=== PATIENT | male | born 1975 | race Caucasian/White ===

== ENCOUNTER 2018-05-15 11:11 | Emergency (ER) | payer MEDICARE, MEDICAID ==
[2017-07-17 10:02] VITALS: BMI 26.2
[~2018-05-15 11:11] MED LIST: AMOX-362 PO; AMOX250S73 PO; BACL-1 FT; BACL-1 PO; CLIN300C99 FT; IPRA0.2S8 IH; LEVO-85 FT; LORA5SOL56 PO; MIR; OMEP-125 PEG; ONDA4TAB PO; OSEL6SUS4 FT; OXYB5TAB80 FT; OXYB5TAB86 PO; OXYXL5 PO; POLY17PO25 FT; POLY17PO25 PO; RAN150 PO; RANI-318 FT; RANI15SY19 PO; TER20I SQ; omeprazole FT
--- NOTE | 2018-05-15 11:20 | ER Report ---
History and Physical Time Seen By MD: 11:19 HPI/ROS CHIEF COMPLAINT: Nausea and vomiting HISTORY OF PRESENT ILLNESS: This is a 43-year-old male, who has CP and is wheelchair-bound, has had nausea and vomiting. According to the patient's mother and sister he's had nausea and vomiting for the last 4 days was evaluated by his primary care provider yesterday and today subsequently they were concerned about a small bowel obstruction and sent to the emergency room. Patient arrives in no apparent distress. No fevers or chills according to the family. Little to no urine output in the last day. Patient does have a PEG tube. REVIEW OF SYSTEMS: Constitutional: No fever, no chills. Eyes: No discharge. ENT: No sore throat. Cardiovascular: No chest pain, no palpitations. Respiratory: No cough, no shortness of breath. Gastrointestinal: As above. Genitourinary: As above. Musculoskeletal: No back pain. Skin: No rashes. Neurological: No headache. Allergies: Coded Allergies: codeine (Verified Allergy, Mild, 05/15/18) morphine (Verified Allergy, Mild, 05/15/18) Uncoded Allergies: TAPE (Allergy, Mild, 05/27/08) Home Meds Reported Medications Loratadine (CLARITIN) 5 Mg/5 Ml Solution, 10 MG PO 05/15/18 Ranitidine Hcl 15 Mg/Ml Syr (RANITIDINE HCL 15 MG/ML SYR) 15 Mg/1 Ml Syrup, 150 MG PO BID, BOT 07/16/17 Oxybutynin Chloride (OXYBUTYNIN CHLORIDE) 5 Mg Tablet, 5 MG PO QDAY, TAB 07/16/17 [omeprazole] 2 SOLN No Conflict Check, 20 ML FT BID 07/16/17 Ipratropium [place] (IPRATROPIUM BROMIDE) 0.2 Mg/1 Ml Solution, 0.2 MG IH TID 07/16/17 Baclofen (BACLOFEN) 10 Mg Tablet, 10 MG PO QID, #30 TAB 07/16/17 Polyethylene Glycol 3350 (MIRALAX) 17 Gm Powd.pack, 17 GM PO QDAY Y for CONSTIPATION, PKT 12/16/16 Discontinued Scripts Levofloxacin 500 Mg Tab (LEVAQUIN 500 MG TAB) 500 Mg Tablet, 250 MG FT QDAY@1300 , #7 Prov:PIA BERRY MD 07/18/17 Past Medical/Surgical History The patient has a past medical and surgical history of cerebral palsy, cystic fibrosis, pneumonia, PEG tube, incontinence, scoliosis, wheelchair-bound, arthritis, difficulty swallowing, cleft palate repair, bilateral hip surgeries. Reviewed Nurses Notes: Yes Hx Smoking: No Smoking Status: Never Smoker Exposure to Second Hand Smoke?: Yes (MOTHER SMOKES) Hx Substance Use Disorder: No Hx Alcohol Use: No Constitutional Vital Sign - Last 24 Hours 05/15/18 05/15/18 05/15/18 05/15/18 11:11 11:15 11:15 11:30 Temp 100.0 Pulse ??? 144 Resp 16 B/P (MAP) 133/92 133/92 (106) 129/93 (105) Pulse Ox 94 O2 Delivery Room Air 05/15/18 05/15/18 05/15/18 05/15/18 11:41 12:00 12:11 12:30 Pulse 128 119 B/P (MAP) 128/78 (95) 133/79 (97) Pulse Ox 93 95 05/15/18 05/15/18 05/15/18 05/15/18 12:41 12:46 13:00 13:16 Pulse 124 122 122 B/P (MAP) 130/78 (95) Pulse Ox 92 93 05/15/18 13:30 B/P (MAP) 110/73 (85) Intake and Output 05/15/18 05/15/18 05/16/18 15:00 23:00 07:00 Intake Total 500 ml Output Total 100 ml Balance 400 ml Physical Exam General Appearance: The patient is alert, has no immediate need for airway protection and no signs of toxicity, at baseline for the patient. Eyes: Pupils equal and round no pallor or injection. ENT, Mouth: Mucous membranes are dry, no cracks or fissures. Respiratory: There are no retractions, lungs are clear to auscultation. Cardiovascular: Regular rate and rhythm, no murmurs, clicks or rubs. Gastrointestinal: Abdomen is Firm, does seem to elicit some tenderness with palpation, hypoactive to nonexistent bowel sounds in the lower quadrants. No masses or pulsations. No abdominal bruits. Neurological: Patient is at his baseline, is unable to communicate verbally does respond to questions with shaking the head yes or no will withdrawal and grimace to pain. Skin: Warm and dry, no rashes. Musculoskeletal: Neck is supple non tender. Extremities are nontender, nonswollen and have full range of motion. DIFFERENTIAL DIAGNOSIS: After history and physical exam differential diagnosis was considered for abdominal pain including but not limited to appendicitis, cholecystitis, gastritis and urinary tract infection. Medical Decision Making Data Points Result Diagram: 05/15/18 1121 05/15/18 1121 Laboratory Hematology Test 05/15/18 11:21 05/15/18 13:00 Red Blood Count 5.41 M/uL (4.00-5.60) Mean Corpuscular Volume 92.2 fL (80.0-96.0) Mean Corpuscular Hemoglobin 32.1 pg (26.0-33.0) Mean Corpuscular Hemoglobin Concent 34.8 g/dL (32.0-36.0) Red Cell Distribution Width 12.6 % (11.5-14.5) Mean Platelet Volume 10.1 fL (7.2-11.1) Neutrophils (%) (Auto) 68.1 % (39.4-72.5) Lymphocytes (%) (Auto) 25.1 % (17.6-49.6) Monocytes (%) (Auto) 5.6 % (4.1-12.4) Eosinophils (%) (Auto) 0.8 % (0.4-6.7) Basophils (%) (Auto) 0.4 % (0.3-1.4) Nucleated RBC Relative Count (auto) 0.2 /100WBC Neutrophils # (Auto) 7.2 K/uL (2.0-7.4) Lymphocytes # (Auto) 2.7 K/uL (1.3-3.6) Monocytes # (Auto) 0.6 K/uL (0.3-1.0) Eosinophils # (Auto) 0.1 K/uL (0.0-0.5) Basophils # (Auto) 0.0 K/uL (0.0-0.1) Nucleated RBC Absolute Count (auto) 0.02 K/uL Sodium Level 146 mmol/L (137-145) Potassium Level 4.6 mmol/L (3.5-5.0) Chloride Level 103 mmol/L (98-107) Carbon Dioxide Level 29 mmol/L (22-30) Blood Urea Nitrogen 23 mg/dl (9-21) Creatinine 0.70 mg/dl (0.66-1.25) Glomerular Filtration Rate Calc > 60.0 Random Glucose 106 mg/dl (75-110) Calcium Level 9.6 mg/dl (8.4-10.2) Total Bilirubin 0.5 mg/dl (0.2-1.3) Aspartate Amino Transf (AST/SGOT) 35 U/L (0-35) Alanine Aminotransferase (ALT/SGPT) 55 U/L (0-56) Alkaline Phosphatase 142 U/L (0-126) Total Protein 8.8 g/dl (6.3-8.2) Albumin 4.8 g/dl (3.5-5.0) Lipase 133 U/L (23-300) Urine Color Yellow Urine Clarity Cloudy Urine pH 7.0 pH (4.8-9.5) Urine Specific [place]lue 1.017 Urine Protein Negative mg/dL (NEGATIVE) Urine Glucose (UA) Negative mg/dL (NEGATIVE) Urine Ketones Negative mg/dL (NEGATIVE) Urine Blood Negative (NEGATIVE) Urine Nitrite Negative (NEGATIVE) Urine Bilirubin Negative (NEGATIVE) Urine Urobilinogen 2.0 mg/dL (0.2-1.9) Urine Leukocyte Esterase Negative (NEGATIVE) Urine RBC None /HPF (0-2/HPF) Urine WBC 2 /HPF (0-5/HPF) Urine Squamous Epithelial Cells None /LPF (NONE-FEW) Urine Amorphous Crystals Few /HPF Urine Bacteria Negative /HPF (NONE-FEW) Urine Mucus None /HPF (NONE-FEW) Chemistry Test 05/15/18 11:21 05/15/18 13:00 White Blood Count 10.6 k/uL (4.5-11.0) Red Blood Count 5.41 M/uL (4.00-5.60) Hemoglobin 17.3 g/dL (14.0-18.0) Hematocrit 49.9 % (42.0-52.0) Mean Corpuscular Volume 92.2 fL (80.0-96.0) Mean Corpuscular Hemoglobin 32.1 pg (26.0-33.0) Mean Corpuscular Hemoglobin Concent 34.8 g/dL (32.0-36.0) Red Cell Distribution Width 12.6 % (11.5-14.5) Platelet Count 192 K/uL (150-450) Mean Platelet Volume 10.1 fL (7.2-11.1) Neutrophils (%) (Auto) 68.1 % (39.4-72.5) Lymphocytes (%) (Auto) 25.1 % (17.6-49.6) Monocytes (%) (Auto) 5.6 % (4.1-12.4) Eosinophils (%) (Auto) 0.8 % (0.4-6.7) Basophils (%) (Auto) 0.4 % (0.3-1.4) Nucleated RBC Relative Count (auto) 0.2 /100WBC Neutrophils # (Auto) 7.2 K/uL (2.0-7.4) Lymphocytes # (Auto) 2.7 K/uL (1.3-3.6) Monocytes # (Auto) 0.6 K/uL (0.3-1.0) Eosinophils # (Auto) 0.1 K/uL (0.0-0.5) Basophils # (Auto) 0.0 K/uL (0.0-0.1) Nucleated RBC Absolute Count (auto) 0.02 K/uL Glomerular Filtration Rate Calc > 60.0 Calcium Level 9.6 mg/dl (8.4-10.2) Total Bilirubin 0.5 mg/dl (0.2-1.3) Aspartate Amino Transf (AST/SGOT) 35 U/L (0-35) Alanine Aminotransferase (ALT/SGPT) 55 U/L (0-56) Alkaline Phosphatase 142 U/L (0-126) Total Protein 8.8 g/dl (6.3-8.2) Albumin 4.8 g/dl (3.5-5.0) Lipase 133 U/L (23-300) Urine Color Yellow Urine Clarity Cloudy Urine pH 7.0 pH (4.8-9.5) Urine Specific Vanlue 1.017 Urine Protein Negative mg/dL (NEGATIVE) Urine Glucose (UA) Negative mg/dL (NEGATIVE) Urine Ketones Negative mg/dL (NEGATIVE) Urine Blood Negative (NEGATIVE) Urine Nitrite Negative (NEGATIVE) Urine Bilirubin Negative (NEGATIVE) Urine Urobilinogen 2.0 mg/dL (0.2-1.9) Urine Leukocyte Esterase Negative (NEGATIVE) Urine RBC None /HPF (0-2/HPF) Urine WBC 2 /HPF (0-5/HPF) Urine Squamous Epithelial Cells None /LPF (NONE-FEW) Urine Amorphous Crystals Few /HPF Urine Bacteria Negative /HPF (NONE-FEW) Urine Mucus None /HPF (NONE-FEW) Urinalysis Test 05/15/18 13:00 Urine Color Yellow Urine Clarity Cloudy Urine pH 7.0 pH (4.8-9.5) Urine Specific [place] 1.017 Urine Protein Negative mg/dL (NEGATIVE) Urine Glucose (UA) Negative mg/dL (NEGATIVE) Urine Ketones Negative mg/dL (NEGATIVE) Urine Blood Negative (NEGATIVE) Urine Nitrite Negative (NEGATIVE) Urine Bilirubin Negative (NEGATIVE) Urine Urobilinogen 2.0 mg/dL (0.2-1.9) Urine Leukocyte Esterase Negative (NEGATIVE) Urine RBC None /HPF (0-2/HPF) Urine WBC 2 /HPF (0-5/HPF) Urine Squamous Epithelial Cells None /LPF (NONE-FEW) Urine Amorphous Crystals Few /HPF Urine Bacteria Negative /HPF (NONE-FEW) Urine Mucus None /HPF (NONE-FEW) EKG/Imaging Imaging CT abdomen and pelvis with IV contrast Indication: Abdominal pain. Evaluate for small bowel obstruction. Comparison: None available. . Technique: Axial CT images were obtained through the abdomen and pelvis during injection of nonionic iodinated intravenous contrast. Reformatted coronal and sagittal images were also obtained. One of the following dose optimization techniques was utilized in the performance of this exam: Automated exposure control; adjustment of the mA and/ or kV according to the patient's size; or use of an iterative reconstruction technique. Specific details can be referenced in the facility's radiology CT exam operational policy. Contrast: 75 ml of Isovue-370 IV contrast. Findings: Lower lung isaac: Limited views lower lung field are unremarkable. Liver: No focal parenchymal abnormality of the liver. Biliary: Gallbladder appears unremarkable as well as the intra and extra hepatic biliary system. Pancreas: Normal appearance. Spleen: Normal appearance. Adrenal glands: Unremarkable. Kidneys / retroperitoneum: No evidence of nephrolithiasis or hydronephrosis. No focal abnormality. Bowel / peritoneum / mesenteries: Moderate stool seen in the rectosigmoid colon without focal abnormality. The colon shows no other focal abnormality with mild stool present. The appendix is not definitely visualized. No secondary signs of appendicitis. Small bowel shows no focal abnormality or obstruction. The stomach is unremarkable gastrostomy tube in place in good position. No free air, free fluid, fluid collections or areas of inflammation. Lymph node assessment: No pathologic adenopathy identified. Pelvic structures: Appear unremarkable. Vessels: No significant atherosclerotic calcifications seen throughout a nonaneurysmal abdominal aorta and branches. Musculoskeletal / Body wall: No acute or aggressive osseous abnormality. Congenital or chronic deformities and pelvis. There is a dislocation of the left hip with superior displacement of the left femur without acute abnormality. IMPRESSION: 1. No acute intra-abdominal abnormality 2. No bowel obstruction. There is moderate amount stool seen in the rectosigmoid colon without focal abnormality. 3. Dislocation of the left hip with superior displacement of the left femur, likely chronic. No acute abnormality seen in this region. Report Dictated By: Alex Reyes at 05/15/2018 1:15 PM Report E-Signed By: Alex Reyes at 05/15/2018 1:22 PM [id number] ED Course/Re-evaluation Clinical Indication for ER IV: Hydration, IV Access ED Course The patient was in the emergency room. History and physical were obtained. Differential diagnoses were considered. An IV was started. A 500 mL bolus of normal saline was given. A CBC, CMP were obtained lab studies unremarkable. UA was negative. CT of the abdomen and pelvis was negative for obstruction, PEG tube in appropriate place. I did review the lab studies and CT report with the patient's family, I did instruct him to follow-up with her primary care provider in 2 days for reevaluation. I also did tell him that I don't have a clear examination is otherwise having the nausea and vomiting could be an enteritis. Also instructed them to slow the infusion rate of the feedings, this could help with the nausea and vomiting. The family had no other questions or concerns at this time and discharged. Decision to Disposition Date: May 15, 2018 Decision to Disposition Time: 13:34 Depart Departure Latest Vital Signs Vital Signs Date Time Temp Pulse Resp B/P (MAP) Pulse Ox O2 Delivery O2 Flow Rate FiO2 05/15/18 13:30 110/73 (85) 05/15/18 13:16 122 93 05/15/18 11:15 100.0 16 Room Air Impression: Primary Impression: Nausea & vomiting Condition: Improved Disposition: HOME OR SELF-CARE Referrals: NURIA MENESES PA-C (PCP) 2 Days Patient Instructions: Acute Nausea and Vomiting (ED) Additional Instructions: Continue with your daily routine consider giving the formula slower to see if this will help with the vomiting. No indication of gastric tube displacement or a bowel obstruction. There is no sign of infection, the blood work is normal, no infection in the urine. I don't have a clear etiology for the nausea and vomiting, be sure to use proper hand hygiene when mixing foods, formulas and administering water. I would recommend following up with Nuria Meneses in 2 days for reevaluation. If you have any other concerns or worsening symptoms please return to the emergency department for reevaluation. Problem Qualifiers Primary Impression: Nausea & vomiting Vomiting type: unspecified Vomiting Intractability: non-intractable Qualified Codes: R11.2 - Nausea with vomiting, unspecified ZURDO OCASIOP-BC May 15, 2018 11:20
[2018-05-15] MEDS ORDERED: LORA5SOL56 PO (11:24)
[2018-05-15] MEDS ORDERED: NS(*) 0.9% 500 ML BAG 500 ML IV ONE (11:28)
[2018-05-15] MEDS ORDERED: ONDANSETRON 4 MG/2 ML VIAL IVP ONE (11:30)
[2018-05-15] MEDS ORDERED: IOPAMIDOL 76% 75 ML INFUS BTL 75 ML ONE (11:44)
[2018-05-15 11:55] LABS: PLATELET COUNT, AUTOMATED 192 K/uL (150-450)
--- NOTE | 2018-05-15 13:26 | RADIOLOGY IMAGING REPORT ---
FACILITY: PATIENT NAME: Griffin Jauregui : 1975 MR: [id number] V: [id number] EXAM DATE: ORDERING PHYSICIAN: ZURDO OCASIO TECHNOLOGIST: Location: [facility] Patient: Griffin Jauregui : 1975 Visit/Account:[id number] Date of Sevice: 05/15/2018 CT abdomen and pelvis with IV contrast Indication: Abdominal pain. Evaluate for small bowel obstruction. Comparison: None available. . Technique: Axial CT images were obtained through the abdomen and pelvis during injection of nonioni c iodinated intravenous contrast. Reformatted coronal and sagittal images were also obtained. One of the following dose optimization techniques was utilized in the performance of this exam: Autom ated exposure control; adjustment of the mA and/or kV according to the patient's size; or use of an i terative reconstruction technique. Specific details can be referenced in the facility's radiology C T exam operational policy. Contrast: 75 ml of Isovue-370 IV contrast. Findings: Lower lung isaac: Limited views lower lung field are unremarkable. Liver: No focal parenchymal abnormality of the liver. Biliary: Gallbladder appears unremarkable as well as the intra and extra hepatic biliary system. Pancreas: Normal appearance. Spleen: Normal appearance. Adrenal glands: Unremarkable. Kidneys / retroperitoneum: No evidence of nephrolithiasis or hydronephrosis. No focal abnormality. Bowel / peritoneum / mesenteries: Moderate stool seen in the rectosigmoid colon without focal abnorma lity. The colon shows no other focal abnormality with mild stool present. The appendix is not definit eugenie visualized. No secondary signs of appendicitis. Small bowel shows no focal abnormality or obstruc tion. The stomach is unremarkable gastrostomy tube in place in good position. No free air, free fluid, fluid collections or areas of inflammation. Lymph node assessment: No pathologic adenopathy identified. Pelvic structures: Appear unremarkable. Vessels: No significant atherosclerotic calcifications seen throughout a nonaneurysmal abdominal aort a and branches. Musculoskeletal / Body wall: No acute or aggressive osseous abnormality. Congenital or chronic deform ities and pelvis. There is a dislocation of the left hip with superior displacement of the left femur without acute abnormality. IMPRESSION: 1. No acute intra-abdominal abnormality 2. No bowel obstruction. There is moderate amount stool seen in the rectosigmoid colon without focal abnormality. 3. Dislocation of the left hip with superior displacement of the left femur, likely chronic. No acute abnormality seen in this region. Report Dictated By: Alex Reyes at 05/15/2018 1:15 PM Report E-Signed By: Alex Reyes at 05/15/2018 1:22 PM WSN:[id number]
[2018-05-15 13:30] VITALS: BP 110/73
== END 2018-05-15 13:54 | disposition home or self-care (01) ==
LOC: ER 11:23
DX: R11.2 Nausea with vomiting, unspecified (principal)
CPT/HCPCS: 74177; 81001; 83690; 85025; 96361; 96374; 99284; J2405; J7040; Q9967; 82040; 82247; 82310; 82374; 82435; 82565; 82947; 84075; 84132; 84155; 84295; 84450; 84460; 84520

== ENCOUNTER 2019-01-29 10:24 | Emergency (ER) | payer MEDICARE, MEDICAID ==
[2017-07-17 10:02] VITALS: Wt 39.5 kg
[2019-01-29] MEDS ORDERED: NS(*) 0.9% 1000 ML BAG 1,000 ML IV ONE (10:35)
--- NOTE | 2019-01-29 10:37 | ER Report ---
History and Physical Time Seen By MD: 10:35 Hx. of Stated Complaint: EMS AND CAREGIVER REPORT THAT THE PATIENT FELL OUT OF SOMETIME BETWEEN 0600 AND 0930 THIS MORNING HPI/ROS CHIEF COMPLAINT: Fall out of bed HISTORY OF PRESENT ILLNESS: Patient is a 43-year-old male history of cerebral palsy unable to give any history is a phasic comes emergency Department today via EMS evidently caregiver found him on the floor and he did crawl over the railing in his bed and was laying flat on his back with his feet propped up aga inst the bed reportedly that was there for several hours patient cannot give any additional history there is no wheezing assessing complaints at this time I does have a small abrasion on his back otherwise no other physical exam findings out of the ordinary no additional complaints noted REVIEW OF SYSTEMS: Respiratory: Unable to obtained Cardiovascular: Unable to obtain Gastrointestinal: Unable to obtain Musculoskeletal: Unable to obtain Allergies: Coded Allergies: codeine (Verified Allergy, Mild, 05/15/18) morphine (Verified Allergy, Mild, 05/15/18) Uncoded Allergies: TAPE (Allergy, Mild, 05/27/08) Home Meds Active Scripts Amoxicillin/Pot Clav 600-42.9 Mg/5 Ml Susp (AMOX TR-K CLV 600-42.9/5 SUSP) 600 Mg/5 Ml Susp.recon, 900 MG PO Q12H for 10 Days, #150 ML Prov:LLOYD CARMICHAELJULITO 07/08/18 Reported Medications [free water] No Conflict Check, 60 ML FT qhr 07/05/18 Lactose-Reduced Food/Fiber (Jevity 1.5 Ishmael Liquid) 0.06 Gram-1.5 Kcal/Ml Liquid, 40 ML FT qhr 07/05/18 Olopatadine HCl (Olopatadine HCl) 0.2 % Drops, 1 GTT OU BID 07/05/18 Omeprazole Magnesium (PRILOSEC) 10 Mg Suspdr.pkt, 20 MG FT BID 07/05/18 Albuterol Sulfate 0.083% (ALBUTEROL SULFATE 0.083%) 2.5 Mg/3 Ml Vial.neb, 2.5 MG INH tid-qid PRN for DYSPNEA, INH 07/05/18 Loratadine (CLARITIN) 5 Mg/5 Ml Solution, 10 ML FT DAILY 05/15/18 Ranitidine Hcl 15 Mg/Ml Syr (RANITIDINE HCL 15 MG/ML SYR) 15 Mg/1 Ml Syrup, 10 ML FT BID, BOT 07/16/17 Oxybutynin Chloride (OXYBUTYNIN CHLORIDE) 5 Mg Tablet, 5 MG FT BID, TAB Crush tablet and place through FT 07/16/17 Baclofen (BACLOFEN) 10 Mg Tablet, 10 MG FT QID, #[address] TAB [address] tablet and place through FT. 07/16/17 Polyethylene Glycol 3350 (MIRALAX) 17 Gm Powd.pack, 8.5 GM FT QDAY PRN for CONSTIPATION, PKT 12/16/16 Reviewed Nurses Notes: Yes Old Medical Records Reviewed: Yes Hx Smoking: No Smoking Status: Never Smoker Exposure to Second Hand Smoke?: Yes (MOTHER SMOKES) Hx Substance Use Disorder: No Hx Alcohol Use: No Constitutional Vital Sign - Last 24 Hours 01/29/19 01/29/19 01/29/19 01/29/19 10:24 10:26 10:30 10:45 Temp 98.5 Pulse 144 150 Resp 25 28 B/P (MAP) 107/83 111/98 (102) 121/104 (110) Pulse Ox 94 95 01/29/19 01/29/19 01/29/19 01/29/19 10:54 11:00 11:30 11:45 Pulse 140 Resp 15 B/P (MAP) 112/100 (104) 128/92 (104) 143/84 (103) Pulse Ox 01/29/19 01/29/19 01/29/19 12:00 12:15 12:20 Pulse 125 Resp 18 B/P (MAP) 116/91 (99) 127/81 (96) Pulse Ox 93 Physical Exam General Appearance: The patient is alert, has no immediate need for airway protection and no current signs of toxicity. At his baseline Eyes: Pupils equal and round no injection. Respiratory: Chest is non tender, lungs are clear to auscultation. Cardiac: regular rate and rhythm [ ] Gastrointestinal: Abdomen is soft and non tender, no masses, bowel sounds normal. 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 Unchanged from baseline Skin: Abrasion left scapular area [ ] DIFFERENTIAL DIAGNOSIS: After history and physical exam differential diagnosis was considered for fall unclear etiology unclear injury Medical Decision Making Data Points Result Diagram: 01/29/19 1102 01/29/19 1102 Laboratory Hematology Test 01/29/19 00:00 01/29/19 11:02 01/29/19 11:38 Total Creatine Kinase 57 U/L (55-170) Red Blood Count 5.69 M/uL (4.00-5.60) Mean Corpuscular Volume 87.1 fL (80.0-96.0) Mean Corpuscular Hemoglobin 29.1 pg (26.0-33.0) Mean Corpuscular Hemoglobin Concent 33.4 g/dL (32.0-36.0) Red Cell Distribution Width 15.9 % (11.5-14.5) Mean Platelet Volume 9.8 fL (7.2-11.1) Neutrophils (%) (Auto) 84.8 % (39.4-72.5) Lymphocytes (%) (Auto) 10.3 % (17.6-49.6) Monocytes (%) (Auto) 4.5 % (4.1-12.4) Eosinophils (%) (Auto) 0.3 % (0.4-6.7) Basophils (%) (Auto) 0.1 % (0.3-1.4) Nucleated RBC Relative Count (auto) 0.0 /100WBC Neutrophils # (Auto) 7.4 K/uL (2.0-7.4) Lymphocytes # (Auto) 0.9 K/uL (1.3-3.6) Monocytes # (Auto) 0.4 K/uL (0.3-1.0) Eosinophils # (Auto) 0.0 K/uL (0.0-0.5) Basophils # (Auto) 0.0 K/uL (0.0-0.1) Nucleated RBC Absolute Count (auto) 0.00 K/uL D-Dimer Quantitative (PE/DVT) < 0.27 ug/ml (0-0.50) Sodium Level 140 mmol/L (137-145) Potassium Level 4.5 mmol/L (3.5-5.0) Chloride Level 106 mmol/L (98-107) Carbon Dioxide Level 22 mmol/L (22-30) Blood Urea Nitrogen 18 mg/dl (9-21) Creatinine 0.60 mg/dl (0.66-1.25) Glomerular Filtration Rate Calc > 60.0 Random Glucose 95 mg/dl (75-110) Calcium Level 9.3 mg/dl (8.4-10.2) Total Bilirubin 0.3 mg/dl (0.2-1.3) Aspartate Amino Transf (AST/SGOT) 30 U/L (0-35) Alanine Aminotransferase (ALT/SGPT) 38 U/L (0-56) Alkaline Phosphatase 128 U/L (0-126) Total Protein 8.0 g/dl (6.3-8.2) Albumin 4.6 g/dl (3.5-5.0) Urine Color Yellow Urine Clarity Slightly-cloudy Urine pH 7.0 pH (4.8-9.5) Urine Specific [place] 1.012 Urine Protein Negative mg/dL (NEGATIVE) Urine Glucose (UA) Negative mg/dL (NEGATIVE) Urine Ketones Negative mg/dL (NEGATIVE) Urine Blood Negative (NEGATIVE) Urine Nitrite Negative (NEGATIVE) Urine Bilirubin Negative (NEGATIVE) Urine Urobilinogen Negative mg/dL (0.2-1.9) Urine Leukocyte Esterase Trace (NEGATIVE) Urine RBC None /HPF (0-2/HPF) Urine WBC 6 /HPF (0-5/HPF) Urine Squamous Epithelial Cells None /LPF (NONE-FEW) Urine Calcium Oxalate Crystals Few /HPF (NONE) Urine Amorphous Crystals Few /HPF Urine Bacteria Few /HPF (NONE-FEW) Urine Mucus None /HPF (NONE-FEW) Chemistry Test 01/29/19 00:00 01/29/19 11:02 01/29/19 11:38 Total Creatine Kinase 57 U/L (55-170) White Blood Count 8.7 k/uL (4.5-11.0) Red Blood Count 5.69 M/uL (4.00-5.60) Hemoglobin 16.5 g/dL (14.0-18.0) Hematocrit 49.6 % (42.0-52.0) Mean Corpuscular Volume 87.1 fL (80.0-96.0) Mean Corpuscular Hemoglobin 29.1 pg (26.0-33.0) Mean Corpuscular Hemoglobin Concent 33.4 g/dL (32.0-36.0) Red Cell Distribution Width 15.9 % (11.5-14.5) Platelet Count 140 K/uL (150-450) Mean Platelet Volume 9.8 fL (7.2-11.1) Neutrophils (%) (Auto) 84.8 % (39.4-72.5) Lymphocytes (%) (Auto) 10.3 % (17.6-49.6) Monocytes (%) (Auto) 4.5 % (4.1-12.4) Eosinophils (%) (Auto) 0.3 % (0.4-6.7) Basophils (%) (Auto) 0.1 % (0.3-1.4) Nucleated RBC Relative Count (auto) 0.0 /100WBC Neutrophils # (Auto) 7.4 K/uL (2.0-7.4) Lymphocytes # (Auto) 0.9 K/uL (1.3-3.6) Monocytes # (Auto) 0.4 K/uL (0.3-1.0) Eosinophils # (Auto) 0.0 K/uL (0.0-0.5) Basophils # (Auto) 0.0 K/uL (0.0-0.1) Nucleated RBC Absolute Count (auto) 0.00 K/uL D-Dimer Quantitative (PE/DVT) < 0.27 ug/ml (0-0.50) Glomerular Filtration Rate Calc > 60.0 Calcium Level 9.3 mg/dl (8.4-10.2) Total Bilirubin 0.3 mg/dl (0.2-1.3) Aspartate Amino Transf (AST/SGOT) 30 U/L (0-35) Alanine Aminotransferase (ALT/SGPT) 38 U/L (0-56) Alkaline Phosphatase 128 U/L (0-126) Total Protein 8.0 g/dl (6.3-8.2) Albumin 4.6 g/dl (3.5-5.0) Urine Color Yellow Urine Clarity Slightly-cloudy Urine pH 7.0 pH (4.8-9.5) Urine Specific [place] 1.012 Urine Protein Negative mg/dL (NEGATIVE) Urine Glucose (UA) Negative mg/dL (NEGATIVE) Urine Ketones Negative mg/dL (NEGATIVE) Urine Blood Negative (NEGATIVE) Urine Nitrite Negative (NEGATIVE) Urine Bilirubin Negative (NEGATIVE) Urine Urobilinogen Negative mg/dL (0.2-1.9) Urine Leukocyte Esterase Trace (NEGATIVE) Urine RBC None /HPF (0-2/HPF) Urine WBC 6 /HPF (0-5/HPF) Urine Squamous Epithelial Cells None /LPF (NONE-FEW) Urine Calcium Oxalate Crystals Few /HPF (NONE) Urine Amorphous Crystals Few /HPF Urine Bacteria Few /HPF (NONE-FEW) Urine Mucus None /HPF (NONE-FEW) Coagulation Test 01/29/19 11:02 D-Dimer Quantitative (PE/DVT) < 0.27 ug/ml Urinalysis Test 01/29/19 11:38 Urine Color Yellow Urine Clarity Slightly-cloudy Urine pH 7.0 pH (4.8-9.5) Urine Specific [place] 1.012 Urine Protein Negative mg/dL (NEGATIVE) Urine Glucose (UA) Negative mg/dL (NEGATIVE) Urine Ketones Negative mg/dL (NEGATIVE) Urine Blood Negative (NEGATIVE) Urine Nitrite Negative (NEGATIVE) Urine Bilirubin Negative (NEGATIVE) Urine Urobilinogen Negative mg/dL (0.2-1.9) Urine Leukocyte Esterase Trace (NEGATIVE) Urine RBC None /HPF (0-2/HPF) Urine WBC 6 /HPF (0-5/HPF) Urine Squamous Epithelial Cells None /LPF (NONE-FEW) Urine Calcium Oxalate Crystals Few /HPF (NONE) Urine Amorphous Crystals Few /HPF Urine Bacteria Few /HPF (NONE-FEW) Urine Mucus None /HPF (NONE-FEW) ED Course/Re-evaluation ED Course ED clinical course 43-year-old male history of cervical palsy came here after being found on the floor and myoglobin and CK-MB were ordered CK MB is negative no sign of rhabdomyolysis was tachycardic is some fluids looks like he has some dehydration CT scan was negative for anything acute rest was workup and evalu ation was negative Decision to Disposition Date: Jan 29, 2019 Decision to Disposition Time: 12:47 Depart Departure Latest Vital Signs Vital Signs Date Time Temp Pulse Resp B/P (MAP) Pulse Ox O2 Delivery O2 Flow Rate FiO2 01/29/19 12:20 125 18 93 01/29/19 12:15 127/81 (96) 01/29/19 10:26 98.5 Impression: Primary Impression: Dehydration Condition: Improved Disposition: HOME OR SELF-CARE Referrals: VIVIENNE MENESES PA-C (PCP) 5 Days Patient Instructions: Dehydration (DC) NATE CAMILO MD Jan 29, 2019 10:37
--- NOTE | 2019-01-29 11:02 | EKG ---
[place] [facility] [place]: ANIL MAZARIEGOS : [id number] MR: [id number] V: [id number] EXAM DATE: ORDERING PHYSICIAN: NATE CAMILO TECHNOLOGIST: Test Reason : tachy Blood Pressure : / mmHG Vent. Rate : 149 BPM Atrial Rate : 149 BPM P-R Int : 116 ms QRS Dur : 066 ms QT Int : 280 ms P-R-T Axes : 064 233 071 degrees QTc Int : 441 ms Sinus tachycardia Otherwise normal ECG When compared with ECG of 07.06.2018 No significant change was found Confirmed by Zohaib Sorto ([id number]) on 01/29/2019 4:20:54 PM Referred By: Confirmed By:Zohaib Platt
[2019-01-29 11:14] LABS: PLATELET COUNT, AUTOMATED 140 K/uL (150-450)
--- NOTE | 2019-01-29 11:49 | RADIOLOGY IMAGING REPORT ---
[place] [facility] [place] Jauregui : 1975 MR: [id number] V: [id number] EXAM DATE: ORDERING PHYSICIAN: NATE CAMILO TECHNOLOGIST: Location: [facility] [place] Patient: Griffin Jauregui : 1975 Visit/Account:[id number] Date of Sevice: 01/29/2019 EXAMINATION: CT head without IV contrast HISTORY: Fall. COMPARISON: None. TECHNIQUE: Contiguous axial images were obtained from the skull base to the vertex without intraven ous contrast. Sagittal and coronal reformatted images are also submitted. One of the following dose optimization techniques was utilized in the performance of this exam: Autom ated exposure control; adjustment of the mA and/or kV according to the patient's size; or use of an i terative reconstruction technique. Specific details can be referenced in the facility's radiology C T exam operational policy. FINDINGS: The exam is mildly limited by patient motion artifact. Brain volume: There is mild generalized cerebral and cerebellar atrophy, and mild atrophy of the bra instem. Ventricles: Normal. Acute ischemic changes: None. Hemorrhage: No acute intracranial hemorrhage. Masses/edema: None. Reddy-white: Negative. White matter: Normal. Vessels: Negative. Extra-axial: Negative. Calvarium/scalp: No acute fracture. Skull base/visualized face: Partial right mastoidectomy. Visualized sinuses/orbits: Mild nasal septal deviation to the left. IMPRESSION: 1. No acute fracture, hemorrhage or intracranial mass lesion. No CT evidence of acute infarct. 2. Mild generalized atrophy is abnormal for age. Report Dictated By: Dyana Ferrari MD at 01/29/2019 11:43 AM Report E-Signed By: Dyana Ferrari MD at 01/29/2019 11:45 AM WSN:[id number]
--- NOTE | 2019-01-29 12:06 | RADIOLOGY IMAGING REPORT ---
FACILITY: [facility] PATIENT NAME: Griffin Jauregui : 1975 MR: [id number] V: [id number] EXAM DATE: ORDERING PHYSICIAN: NATE CAMILO TECHNOLOGIST: Location: [facility] Patient: Griffin Jauregui : 1975 Visit/Account:[id number] Date of Sevice: 01/29/2019 Exam type: CHEST SINGLE AP History: Fell out of bed this morning Comparison: July 05, 2018. Findings: There is a severe scoliosis of the thoracic spine with distortion of the thoracic cage. This chronic elevation right hemidiaphragm. There is no evidence of acute appearing infiltrates pneumothorax pne umomediastinum or pleural effusion. The cardiac silhouette is normal in size IMPRESSION: 1. No acute cardiopulmonary process seen Report Dictated By: Lydia Steward MD at 01/29/2019 11:58 AM Report E-Signed By: Lydia Steward MD at 01/29/2019 12:00 PM WSN:[id number]
[2019-01-29 13:30] VITALS: BP 146/94
== END 2019-01-29 13:45 | disposition home or self-care (01) ==
LOC: ER 10:46
DX: E86.0 Dehydration (principal); R00.0 Tachycardia, unspecified; W06.XXXA Fall from bed, initial encounter
CPT/HCPCS: 36415; 70450; 71045; 81001; 82550; 84443; 85025; 85379; 93005; 96360; 96361; 99284; J7030; 82040; 82247; 82310; 82374; 82435; 82565; 82947; 84075; 84132; 84155; 84295; 84450; 84460; 84520

== ENCOUNTER → 2019-01-29 | Outpatient (CLI) | payer MEDICARE, MEDICAID ==
[2017-07-17 10:02] VITALS: BMI 26.2
[~2019-01-29] MED LIST changes: +ALBU2.5V36 INH; +AMOX600S32 PO; +LACT-272 FT; +LORA5SOL56 FT; +OLOP2.5D5 OU; +OMEP10SU FT; +OXYB5TAB86 FT; -OXYB5TAB86 PO; +RANI15SY19 FT; +[UNRECOGNIZED DRUG - REMARK] FT
== END ==
LOC: AMB 09:48
PROVIDERS: ATTEND Nurse Practitioner
DX: M54.9 Dorsalgia, unspecified (principal); G80.9 Cerebral palsy, unspecified
CPT/HCPCS: A0425; A0427